=== PATIENT | male | born 2000 | race Caucasian/White ===

== ENCOUNTER 2019-01-07 01:20 | Emergency (ER) | payer OTHER ==
[~2019-01-07] VITALS: Ht 172.7 cm; Wt 73.9 kg
[~2019-01-07 01:20] MED LIST: IBUP-1561 PO
[2019-01-07 01:23] VITALS: Ht 172.7 cm; Wt 73.9 kg
[2019-01-07] MEDS ORDERED: SILV20CR13 TOP (01:40)
[2019-01-07] MEDS ORDERED: IBUP800T48 PO (01:41)
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
== END 2019-01-07 02:15 | disposition home or self-care (01) ==
LOC: FTE 01:20
DX: T25.221A Burn of second degree of right foot, initial encounter (principal); X12.XXXA Contact with other hot fluids, initial encounter; Y92.9 Unspecified place or not applicable
CPT/HCPCS: 16000; L3260